=== PATIENT | male | born 1970 | race Caucasian/White ===

== ENCOUNTER 2023-01-14 12:37 | Outpatient (CLI) | payer OTHER, SELFPAY ==
--- NOTE | 2023-01-14 13:00 | CRLHL7_ITS ---
For Patients: As a result of the Century Cures Act, medical imaging exams and procedure reports are released immediately into your electronic medical record. You may view this report before your referring provider. If you have questions, please contact your health care provider. INDICATION: VOCAL CORD NOT MOVING LIKE IT SHOULD. HX OF LARYNGEAL CANCER COMPARISON: none TECHNIQUE: A CT volumetric acquisition was performed of the neck during intravenous infusion of 125 cc of Omnipaque-350 nonionic intravenous contrast. Please note that all CT scans at this facility use dose modulation, iterative reconstruction, and/or weight-based dosing when appropriate to reduce radiation dose to as low as reasonably achievable. FINDINGS: Post treatment changes are similar. Mild asymmetry of the left posterior tongue base is similar. No discernible laryngeal lesion. No adenopathy. No thyroid mass. Normal vallecula and piriform sinuses. Visualized brain parenchyma and orbits are normal. Normal salivary glands. Lung apices clear. Mild degenerative changes. No fracture. No tonsillar hypertrophy. Epiglottis is similar as is the pre epiglottic fat. IMPRESSION: No evidence of neck mass or adenopathy. Please note that all CT scans at this facility use dose modulation, iterative reconstruction, and/or weight-based dosing when appropriate to reduce radiation dose to as low as reasonably achievable. Dictated by Guru Batres MD @ 01/15/2023 11:24:03 AM (Electronically Signed)
[2023-01-14 13:32] LABS: Creatinine, Point-of-Care* 0.8 mg/dl (0.6-1.3)
== END 2023-01-14 12:38 | disposition home or self-care (01) ==
LOC: CT 12:38
PROVIDERS: PCP Family Medicine; Visit Provider Otolaryngology
DX: Z85.819 Personal history of malignant neoplasm of unspecified site of lip, oral cavity, and pharynx (principal)
CPT/HCPCS: 70491; 82565; Q9967